=== PATIENT | female | born 1960 | race Caucasian/White ===

== ENCOUNTER → 2023-11-03 14:38 | Outpatient (REF) | payer OTHER, SELFPAY | LOC: DHCBC MAIN 14:38 | PROVIDERS: ATTENDING PHYSICIAN Nurse Practitioner; FAMILY PHYSICIAN Internal Medicine | DX: I49.3 Ventricular premature depolarization (principal); F17.200 Nicotine dependence, unspecified, uncomplicated; I47.10 Supraventricular tachycardia, unspecified; I35.8 Other nonrheumatic aortic valve disorders | CPT/HCPCS: 93306 ==

== ENCOUNTER → 2023-11-26 09:08 | Outpatient (REF) | payer OTHER, SELFPAY | LOC: RAD 09:08 | PROVIDERS: ATTENDING PHYSICIAN Nurse Practitioner; FAMILY PHYSICIAN Internal Medicine | DX: F17.200 Nicotine dependence, unspecified, uncomplicated (principal); I49.3 Ventricular premature depolarization; I47.10 Supraventricular tachycardia, unspecified; I35.8 Other nonrheumatic aortic valve disorders | CPT/HCPCS: 76770 ==

== ENCOUNTER → 2023-12-01 10:54 | Outpatient (REF) | payer OTHER, SELFPAY | LOC: RCS 10:54 | PROVIDERS: ATTENDING PHYSICIAN Nurse Practitioner Family; FAMILY PHYSICIAN Internal Medicine | DX: T50.905A Adverse effect of unspecified drugs, medicaments and biological substances, initial encounter (principal); I10 Essential (primary) hypertension; F41.1 Generalized anxiety disorder; Z86.79 Personal history of other diseases of the circulatory system; Z13.89 Encounter for screening for other disorder; R00.2 Palpitations | CPT/HCPCS: 93005 ==

== ENCOUNTER → 2024-01-12 06:26 | Day surgery (SDC) | payer OTHER, SELFPAY | LOC: GI 06:26 | PROVIDERS: ATTENDING PHYSICIAN Internal Medicine | DX: Z12.11 Encounter for screening for malignant neoplasm of colon (principal); D12.3 Benign neoplasm of transverse colon; D12.5 Benign neoplasm of sigmoid colon; K63.5 Polyp of colon; K62.1 Rectal polyp | CPT/HCPCS: 45385; 45380; 88305 ==

== ENCOUNTER → 2024-03-03 09:49 | Outpatient (REF) | payer OTHER, SELFPAY | LOC: HWRAD 09:49 | PROVIDERS: ATTENDING PHYSICIAN Nurse Practitioner Primary Care | DX: M81.0 Age-related osteoporosis without current pathological fracture (principal) | CPT/HCPCS: 77080 ==

== ENCOUNTER → 2024-08-24 15:12 | Outpatient (REF) | payer OTHER, SELFPAY | LOC: WDC 15:12 | PROVIDERS: ATTENDING PHYSICIAN Obstetrics & Gynecology; FAMILY PHYSICIAN Internal Medicine | DX: Z12.31 Encounter for screening mammogram for malignant neoplasm of breast (principal) | CPT/HCPCS: 77063; 77067 ==

== ENCOUNTER → 2025-01-17 09:15 | Outpatient (REF) | payer OTHER, SELFPAY | LOC: RAD 09:15 | PROVIDERS: ATTENDING PHYSICIAN Nurse Practitioner Family; FAMILY PHYSICIAN Internal Medicine | DX: R05.3 Chronic cough (principal) | CPT/HCPCS: 71046 ==

== ENCOUNTER → 2025-02-01 08:14 | Outpatient (REF) | payer OTHER, SELFPAY | LOC: HWRCS 08:14 | PROVIDERS: ATTENDING PHYSICIAN Internal Medicine; FAMILY PHYSICIAN Internal Medicine | DX: I49.3 Ventricular premature depolarization (principal); F17.200 Nicotine dependence, unspecified, uncomplicated; I47.10 Supraventricular tachycardia, unspecified; I35.8 Other nonrheumatic aortic valve disorders; I10 Essential (primary) hypertension | CPT/HCPCS: 93306 ==

== ENCOUNTER → 2025-08-14 10:23 | Outpatient (REF) | payer OTHER, SELFPAY | LOC: RAD 10:23 | PROVIDERS: ATTENDING PHYSICIAN Nurse Practitioner Family | DX: M54.2 Cervicalgia (principal) | CPT/HCPCS: 72052 ==